=== PATIENT | female | born 1970 | race Caucasian/White ===

== ENCOUNTER 2018-12-20 16:01 | Emergency (ER) | payer MEDICARE ==
[~2018-12-20] VITALS: Ht 160 cm; Wt 70.3 kg
[2018-12-20 16:01] VITALS: BP 162/71
--- NOTE | 2018-12-20 16:31 | RAD ---
Exam performed: 3 views of the leftwrist. Clinical Indication: Left wrist pain, status post fall Date of Service: April 19, 2019 Comparison: None available Findings: PA, oblique and lateral radiographs of the wrist reveal the osseous structures to be intact and well aligned. The joint spaces are well-preserved and the articular margins are smooth. Evidence of acute fracture, dislocation or other significant osseous abnormality is not identified. There is a chronic appearing ossific fragment in relation to the ulnar styloid process Impression: No acute abnormality seen in the left wrist Electronically signed by: Shannan Jordan MD (12/20/2018 4:26 PM) [facility]
[2018-12-20] MEDS ORDERED: TRAM-48 PO (16:58)
--- NOTE | 2018-12-20 16:58 | PHYS DOC ---
Past History Past Medical History: Fibromyalgia, Other Past Surgical History: Other Smoking: Cigarettes Alcohol Use: Occasionally Drug Use: None Adult General Chief Complaint Chief Complaint: WRIST PAIN HPI HPI Patient is a 48 year old right-handed female who presents with planing of fall and injury to left wrist. Patient states she had a fall yesterday afternoon from her porch and landed on bilateral hyperextended hands and had ecchymosis of right hand and pain of left wrist. Patient states the pain of left wrist is gradually getting worse especially with movement. Patient denies other injuries. Review of Systems Review of Systems Constitutional: Denies fever or chills [] Eyes: Denies change in visual acuity, redness, or eye pain [] HENT: Denies nasal congestion or sore throat [] Respiratory: Denies cough or shortness of breath [] Cardiovascular: No additional information not addressed in HPI [] GI: Denies abdominal pain, nausea, vomiting, bloody stools or diarrhea [] : Denies dysuria or hematuria [] Musculoskeletal: Denies back pain, reports joint pain [] Integument: Denies rash or skin lesions [] Neurologic: Denies headache, focal weakness or sensory changes [] Endocrine: Denies polyuria or polydipsia [] All other systems were reviewed and found to be within normal limits, except as documented in this note. Allergies Allergies Allergies Coded Allergies Type Severity Reaction Last Updated Verified No Known Drug Allergies 12/20/18 No Physical Exam Physical Exam Constitutional: Well developed, well nourished, mild distress, non-toxic appearance. [] HENT: Normocephalic, atraumatic[] Eyes: PERRLA, EOMI, conjunctiva normal, no discharge. [] Neck: Normal range of motion, no tenderness, supple, no stridor. [] Cardiovascular:Heart rate regular rhythm, no murmur [] Lungs & Thorax: Bilateral breath sounds clear to auscultation [] Skin: Warm, dry, no erythema, no rash. [] Back: No tenderness, no CVA tenderness. [] Extremities: Right wrist with a small area of contusion in volar side of wrist without tenderness or limited range of motion neurovascular deficit, left wrist with painful range of motion without deformity or edema or neurovascular deficit Neurologic: Alert and oriented X 3, normal motor function, normal sensory function, no focal deficits noted. [] Psychologic: Affect normal, judgement normal, mood normal. [] Current Patient Data Vital Signs Vital Signs Date Time Temp Pulse Resp B/P (MAP) Pulse Ox O2 Delivery O2 Flow Rate FiO2 12/20/18 16:01 97.5 80 16 99 Room Air EKG EKG [] Radiology/Procedures Radiology/Procedures [address] [address] IMAGING REPORT Signed PATIENT: YUE BURNS ACCOUNT: [id number] : 1970 LOCATION: ER AGE: 48 SEX: F EXAM STATUS: PRE ER ORD. PHYSICIAN: FRANK ARRINGTON MD REASON: INJURY PROCEDURE: WRIST 3V LEFT Exam performed: 3 views of the leftwrist. Clinical Indication: Left wrist pain, status post fall Date of Service: April 19, 2019 Comparison: None available Findings: PA, oblique and lateral radiographs of the wrist reveal the osseous structures to be intact and well aligned. The joint spaces are well-preserved and the articular margins are smooth. Evidence of acute fracture, dislocation or other significant osseous abnormality is not identified. There is a chronic appearing ossific fragment in relation to the ulnar styloid process Impression: No acute abnormality seen in the left wrist Electronically signed by: Shannan Livingston MD (12/20/2018 4:26 PM) [facility] DICTATED AND SIGNED BY: SHANNAN LIVINGSTON MD DATE: 12/20/18 0266 CC: FRANK ARRINGTON MD; PCP,UNKNOWN ~ Course & Med Decision Making Course & Med Decision Making Pertinent Imaging studies reviewed. (See chart for details) Evaluation of patient in ER showed 48-year-old female patient with fall and injury to left wrist. Patient had unremarkable physical exam and x-ray. Velcro wrist splint was applied by [employer] and prescription for Ultram was given. Dragon Disclaimer Dragon Disclaimer This electronic medical record was generated, in whole or in part, using a voice recognition dictation system. Departure Departure: Impression: Primary Impression: Right wrist sprain Additional Impressions: Contusion of left wrist Fall at home Tobacco abuse counseling Disposition: HOME, SELF-CARE (at 1654) Condition: STABLE Referrals: PCP,UNKNOWN (PCP) Patient Instructions: Contusion, Smoking Cessation, Tips For Success, Wrist Sprain with Rehab[facility] Additional Instructions: Apply ice on the affected area Follow-up with your primary care physician in 3-5 days Return to ER if not getting better Scripts Tramadol Hcl (ULTRAM) 50 Mg Tablet 50 MG PO PRN Q6HRS PRN for PAIN, #14 TAB Prov: FRANK ARRINGTON MD 12/20/18 Problem Qualifiers FRANK ARRINGTON MD Dec 20, 2018 16:58
== END 2018-12-20 17:04 | disposition home or self-care (01) ==
LOC: ER 16:01
DX: S63.502A Unspecified sprain of left wrist, initial encounter (principal); S60.211A Contusion of right wrist, initial encounter; F17.210 Nicotine dependence, cigarettes, uncomplicated; M79.7 Fibromyalgia; W17.89XA Other fall from one level to another, initial encounter; Y93.89 Activity, other specified; Y92.89 Other specified places as the place of occurrence of the external cause; Y99.8 Other external cause status
CPT/HCPCS: 29125; 73110; 99283

== ENCOUNTER 2020-01-20 17:47 | Emergency (ER) | payer MEDICARE ==
[~2020-01-20] VITALS: Ht 160 cm; Wt 72.4 kg
[~2020-01-20 17:47] MED LIST: TRAM-48 PO
--- NOTE | 2020-01-20 18:32 | PHYS DOC ---
Past History Past Medical History: Fibromyalgia, Other Past Surgical History: Other Smoking: Cigarettes Alcohol Use: Occasionally Drug Use: None Adult General Chief Complaint Chief Complaint: ABDOMINAL PAIN.. " I ve been having some abdomen pain... but I had hx of chronic lyme dz... and I ve been drinking more than I should... they sent me over from [facility] office.. I did have 8 episodes of diarrhea today... I just want to be checked out..." HPI HPI Patient is a 49 year old female who presents with above history and generalized complaints of malaise, weakness, abdomen pain, diarrhea, thrombosis and myalgia. No recent travel. No history bad food intake. No specific ill contacts. Patient states she's had 8 watery stools today. Patient did not get a flu vaccination this season. Patient has extensive medical history secondary to reported chronic Lyme disease. Normally follows with Dr. Gamez for care. Review of Systems Review of Systems Constitutional: Denies fever or chills [] Eyes: Denies change in visual acuity, redness, or eye pain [] HENT: Denies nasal congestion or sore throat [] Respiratory: Denies cough or shortness of breath [] Cardiovascular: No additional information not addressed in HPI [] GI: Plaints of generalized abdominal pain, nausea, vomiting, and diarrhea [] : Denies dysuria or hematuria [] Musculoskeletal: Denies back pain or joint pain [] Integument: Denies rash or skin lesions [] Neurologic: Denies headache, focal weakness or sensory changes [] Endocrine: Denies polyuria or polydipsia [] All other systems were reviewed and found to be within normal limits, except as documented in this note. Family History Family History Noncontributory Current Medications Current Medications See nursing for home meds Allergies Allergies Allergies Coded Allergies Type Severity Reaction Last Updated Verified No Known Drug Allergies 12/20/18 No Physical Exam Physical Exam Constitutional: Well developed, well nourished, no acute distress, non-toxic appearance. [] HENT: Normocephalic, atraumatic, bilateral external ears normal, oropharynx moist, no oral exudates, nose normal. [] Eyes: PERRLA, EOMI, conjunctiva normal, no discharge. [] Neck: Normal range of motion, no tenderness, supple, no stridor. [] Cardiovascular:Heart rate regular rhythm, no murmur [] Lungs & Thorax: Bilateral breath sounds equal apex with scattered wheezes on auscultation [] Abdomen: Bowel sounds hyperactive, soft, mild generalized tenderness, no masses, no pulsatile masses. [] No focal areas of rebound tenderness Skin: Warm, dry, no erythema, no rash. [] Back: No tenderness, no CVA tenderness. [] Extremities: No tenderness, no cyanosis, no clubbing, ROM intact, no edema. [] No psoas sign. Neurologic: Alert and oriented X 3, normal motor function, normal sensory function, no focal deficits noted. [] Psychologic: Affect anxious, judgement normal, mood normal. [] Current Patient Data Vital Signs Vital Signs Date Time Temp Pulse Resp B/P (MAP) Pulse Ox O2 Delivery O2 Flow Rate FiO2 01/20/20 18:18 97.9 90 18 142/100 (114) 99 Room Air EKG EKG My interpretation of EKG shows a sinus rhythm at 80 bpm. No findings of acute STEMI with contralateral changes.[] Radiology/Procedures Radiology/Procedures [address] [address] IMAGING REPORT Signed PATIENT: YUE BURNS ACCOUNT: [id number] : 1970 LOCATION: ER AGE: 49 SEX: F EXAM STATUS: REG ER ORD. PHYSICIAN: JEFFERY RODRIGES MD REASON: Dyspnea, abdomen pain PROCEDURE: ABDOMEN SUPINE & UPRIGHT ABDOMEN SUPINE UPRIGHT, CHEST PA LATERAL two-view chest: Technique: PA and lateral views of the chest were obtained. Clinical History: Comparison: None. Findings: The heart and pulmonary vasculature appear within normal limits. The lungs are clear. The pleural margins are clear. Impression: No acute chest process is seen. End impression 2 view abdomen pelvis Upright supine AP view abdomen pelvis There is air scattered throughout the colon. There is relative paucity of small bowel gas. There is no free air. IMPRESSION: Nonobstructive bowel gas pattern. Electronically signed by: Todd Hayes III, MD (01/20/2020 7:55 PM) [id number] DICTATED AND SIGNED BY: TODD HAYES III, MD DATE: 01/20/201954 CC: EFRAIN GALINDO MD; JEFFERY RODRIGES MD ~ [][address] [address] IMAGING REPORT Signed PATIENT: YUE BURNS ACCOUNT: [id number] : 1970 LOCATION: ER AGE: 49 SEX: F EXAM STATUS: REG ER ORD. PHYSICIAN: JEFFERY RODRIGES MD REASON: Dyspnea, abdomen pain PROCEDURE: ABDOMEN SUPINE & UPRIGHT ABDOMEN SUPINE UPRIGHT, CHEST PA LATERAL two-view chest: Technique: PA and lateral views of the chest were obtained. Clinical History: Comparison: None. Findings: The heart and pulmonary vasculature appear within normal limits. The lungs are clear. The pleural margins are clear. Impression: No acute chest process is seen. End impression 2 view abdomen pelvis Upright supine AP view abdomen pelvis There is air scattered throughout the colon. There is relative paucity of small bowel gas. There is no free air. IMPRESSION: Nonobstructive bowel gas pattern. Electronically signed by: Todd Hayes III, MD (01/20/2020 7:55 PM) [id number] DICTATED AND SIGNED BY: TODD HAYES III, MD DATE: 01/20/201954 CC: EFRAIN GALINDO MD; JEFFERY RODRIGES MD ~ Course & Med Decision Making Course & Med Decision Making Pertinent Labs and Imaging studies reviewed. (See chart for detai Clear fluid diet 48 hours. No solids or milk products. Must allow bowel rest. Take Zofran for active nausea and vomiting. May take [id number] Pepto- Bismol for active diarrhea. Follow-up primary care. Tylenol and ibuprofen for pain. Reviewed x-rays and lab work with primary care. Encouraged. patient to stop smoking. Impression: 1. Abdomen pain 2. Viral syndrome 3. History of Lyme's disease 4. Acute gastroenteritis Dragon Disclaimer Dragon Disclaimer This electronic medical record was generated, in whole or in part, using a voice recognition dictation system. Departure Departure: Disposition: HOME/RESIDENCE PRIOR TO ADM Condition: STABLE Referrals: EFRAIN GALINDO MD (PCP) Scripts Ranitidine Hcl (ZANTAC) 150 Mg Tablet 150 MG PO BID for gastritis, #30 TAB Prov: JEFFERY RODRIGES MD 01/20/20 Maribell Disclaimer This chart was dictated in whole or in part using Voice Recognition software in a busy, high-work load, and often noisy Emergency Department environment. It may contain unintended and wholly unrecognized errors or omissions. JEFFERY RODRIGES MD Jan 20, 2020 18:32
[2020-01-20] MEDS ORDERED: IV RINGERS SOLUTION,LACTATED 1,000 ML IV SCH (18:33)
[2020-01-20] MEDS ORDERED: MVI, ADULT NO.4 WITH VIT K 10 ML, FOLIC ACID INJ 1 MG, THIAMINE INJ 100 MG in IV RINGER... IV ONE ×4 (18:45)
[2020-01-20 18:59] LABS: BASO # 0.1 x10^3/uL (0.0-0.2); BASO % 1 % (0-3); EOS # 0.1 x10^3/uL (0.0-0.7); EOS % 1 % (0-3); HEMATOCRIT 45.2 % (36.0-47.0); HEMOGLOBIN 15.2 g/dL (12.0-15.5); LYMPH % 26 % (24-48); MEAN CORPUSCULAR HEMOGLOBIN 32 pg (25-35); MEAN CORPUSCULAR HGB CONC 34 g/dL (31-37); MEAN CORPUSCULAR VOLUME 95 fL (79-100); MONO # 0.5 x10^3/uL (0.0-1.1); MONO % 7 % (0-9); NEUT # 5.1 x10^3uL (1.8-7.7); NEUT % 65 % (31-73); PLATELET COUNT 287 x10^3/uL (140-400); RED BLOOD COUNT 4.75 x10^6/uL (3.50-5.40); RED CELL DISTRIBUTION WIDTH 12.7 % (11.5-14.5); WHITE BLOOD COUNT 7.8 x10^3/uL (4.0-11.0)
[2020-01-20 19:04] LABS: CALCIUM 9.4 mg/dL (8.5-10.1); CREATININE 0.7 mg/dL (0.6-1.0); GFR 88.9; POTASSIUM 3.9 mmol/L (3.5-5.1)
[2020-01-20 19:15] LABS: DIRECT BILIRUBIN 0.1 mg/dL (0.0-0.2); TOTAL BILIRUBIN 0.2 mg/dL (0.2-1.0); TOTAL PROTEIN 6.7 g/dL (6.4-8.2)
[2020-01-20 19:17] LABS: BARBITURATES NEG (NEG); BENZODIAZEPINES NEG (NEG); CANNABINOIDS NEG (NEG); COCAINE NEG (NEG); METHADONE NEG (NEG); OPIATES NEG (NEG); PHENCYCLIDINE NEG (NEG)
[2020-01-20 19:18] LABS: AMPHETAMINE/METHAMPHETAMINE NEG (NEG)
[2020-01-20 19:25] LABS: BILIRUBIN,URINE NEG (NEG); CLARITY,URINE CLEAR; COLOR,URINE STRAW; GLUCOSE,URINE NEG (NEG)
[2020-01-20 19:26] LABS: BACTERIA,URINE 0 /HPF (0-FEW); NITRITE,URINE NEG (NEG); RBC,URINE OCC /HPF (0-2); SQUAMOUS EPITHELIAL CELL,UR FEW /LPF; UROBILINOGEN,URINE 0.2 mg/dL (0.2 mg/dL); WBC,URINE 0 /HPF (0-4)
[2020-01-20 19:37] LABS: INFLUENZA A PATIENT NEGATIVE (NEGATIVE); INFLUENZA B PATIENT NEGATIVE (NEGATIVE)
--- NOTE | 2020-01-20 19:58 | RAD ---
ABDOMEN SUPINE UPRIGHT, CHEST PA LATERAL two-view chest: Technique: PA and lateral views of the chest were obtained. Clinical History: Comparison: None. Findings: The heart and pulmonary vasculature appear within normal limits. The lungs are clear. The pleural margins are clear. Impression: No acute chest process is seen. End impression 2 view abdomen pelvis Upright supine AP view abdomen pelvis There is air scattered throughout the colon. There is relative paucity of small bowel gas. There is no free air. IMPRESSION: Nonobstructive bowel gas pattern. Electronically signed by: Jeffy Casey III, MD (01/20/2020 7:55 PM) [id number]
[2020-01-20] MEDS ORDERED: FAMOTIDINE 20 MG/2 ML VIAL IVP ONE (20:15)
[2020-01-20 20:21] LABS: SEDIMENTATION RATE 2 (0-25)
[2020-01-20] MEDS ORDERED: RANI-376 PO (20:54)
[2020-01-20 20:55] VITALS: BP 147/61
== END 2020-01-20 21:50 | disposition home or self-care (01) ==
LOC: ER 17:47
DX: K52.9 Noninfective gastroenteritis and colitis, unspecified (principal); B34.9 Viral infection, unspecified; M79.7 Fibromyalgia; F17.210 Nicotine dependence, cigarettes, uncomplicated; A69.20 Lyme disease, unspecified
CPT/HCPCS: 36415; 71046; 74019; 80048; 80076; 80307; 81001; 82550; 83690; 83735; 83880; 84443; 84484; 84702; 85025; 85379; 85610; 85651; 85730; 87804; 96365; 96366; 96375; 99284; J3490; J7120